=== PATIENT | female | born 1995 | race Caucasian/White ===

== ENCOUNTER 2017-01-27 22:21 | Emergency (ER) | payer SELFPAY ==
[~2017-01-27] VITALS: Ht 167.6 cm; Wt 65.0 kg
[2017-01-27 22:22] VITALS: BP 111/69; PULSE 88; RESP 18; TEMP 97.6; O2SAT 98
[2017-01-28] MEDS ORDERED: SULFAMETHOXAZOLE-TRIMETHOPRIM DS 800-160 MG TAB PO ONE (01:00)
[2017-01-28] MEDS ORDERED: CEPHALEXIN MONOHYDRATE 500 MG CAP PO ONE (01:00)
[2017-01-28] MEDS ORDERED: CEPH-460 PO (01:06)
[2017-01-28] MEDS ORDERED: BACT800T5 PO (01:06)
--- NOTE | 2017-01-28 01:06 | PD ---
HPI Chief Complaint: Eye Problems/Injury Time Seen by Provider: 01:00 Travel History International Travel<30 days: No Contact w/Intl Traveler<30days: No Traveled to known affect area: No History of Present Illness HPI 21-year-old white female presents emergency Department with complaints of painful lump to the right side of her head just lateral to her eye. She states that she had a pimple there which she had squeezed. She had gotten a lot of pus out of it. She states that she had done this earlier today. She states now that the area has become increasing painful again and swollen this is a now involving her upper eyelid. She presents for evaluation. She denies any visual changes. No drainage from her eye. Up-to-date with immunizations. No fever chills. Pain is mild. PFSH Past Medical History Narrative Medical Cystic acne, cervical dysplasia, genital herpes Cancer: Yes (CERVICAL CANCER, HPV) Diminished Hearing: No Genitourinary: Yes (HERPES) Immunizations Current: Yes Tetanus Vaccination: < 5 Years ?: Unknown LMP: 01/27/17 Menopausal: No : 2 Para: 0 Miscarriage: 2 : 0 Past Surgical History Surgical History: No Previous Surgery Section: No Social History Alcohol Use: No Tobacco Use: Yes (1/2ppd ) Substance Use: No Allergies-Medications (Allergen,Severity, Reaction): Coded Allergies: Acyclovir (Verified Allergy, Severe, WORSENS STD, 01/27/17) Benzoyl Peroxide (Verified Allergy, Severe, WORSENS ACNE, 01/27/17) Reported Meds & Prescriptions Reported Meds & Active Scripts Active No Active Prescriptions or Reported Medications Review of Systems Except as stated in HPI: all other systems reviewed are Neg Physical Exam Narrative GENERAL: Well-developed, well-nourished in no acute distress. Nontoxic appearing. HEAD: Normocephalic, patient has a 1.5 x 1.5 tender cystic acne to the right temporal aspect of her eye on the catholic region. There is some mild swelling of the left upper eyelid. There is no signs of cellulitis. EYES: Pupils equal round and reactive. Extraocular motions intact. No scleral icterus. No injection or drainage. ENT: TMs clear without erythema. The external auditory canals clear. Nose: clear . Posterior pharynx is pink and moist. No tonsillar edema or exudate. Uvula midline. Airway patent. NECK: Trachea midline.Supple, nontender, moves head freely. No central bony tenderness or spasm. CARDIOVASCULAR: Regular rate and rhythm without murmurs, gallops, or rubs. RESPIRATORY: Clear to auscultation. Breath sounds equal bilaterally. No wheezes , rales, or rhonchi. GASTROINTESTINAL: Abdomen soft, non-tender, nondistended. No hepato-splenomegaly , or palpable masses. No guarding. EXTREMITIES: No clubbing, cyanosis, or edema. No joint tenderness, effusion, or edema noted. BACK: Nontender without deformity or crepitance. No flank tenderness. Data Data Last Documented VS Vital Signs Date Time Temp Pulse Resp B/P Pulse Ox O2 Delivery O2 Flow Rate FiO2 01/27/17 22:22 97.6 88 18 111/69 98 Orders Ice/Cold Pack (01/28/17 00:59) Sulfamet-Trimeth Ds 800-160 Mg (Bactrim (01/28/17 01:00) Cephalexin (Keflex) (01/28/17 01:00) MDM Medical Decision Making Medical Screen Exam Complete: Yes Emergency Medical Condition: Yes Medical Record Reviewed: Yes Differential Diagnosis MDM: High Differential diagnoses: Abscess, folliculitis, cellulitis, lymphangitis, abrasion, contact dermatitis Narrative Course Patient is given Bactrim DS and Keflex 500 mg by mouth. This is cystic acne Diagnosis Primary Impression: Cystic acne Additional Instructions: Rest. Elevation. keep clean and dry. Ice pack tonight. Then a warm compress. Daily wound care with soap, water and Neosporin. Three Advil every 6 hours. Bactrim DS and Keflex.. Follow-up with a primary care doctor in one week. Return to the ER for any problems. Med/Other Pt SpecificInfo: Prescription(s) given, Wound Care Scripts No Active Prescriptions or Reported Meds Disposition: DISCHARGE HOME Condition: Stable Law Siddiqi Jan 28, 2017 01:06
== END 2017-01-28 01:48 | disposition home or self-care (01) ==
LOC: NEPD 22:21
DX: L70.0 Acne vulgaris (principal); F17.210 Nicotine dependence, cigarettes, uncomplicated
CPT/HCPCS: 99282

== ENCOUNTER 2017-06-21 08:54 | Emergency (ER) | payer SELFPAY ==
[~2017-06-21] VITALS: Ht 165.1 cm; Wt 54.5 kg
[~2017-06-21 08:54] MED LIST: BACT800T5 PO; CEPH-460 PO
[2017-06-21 08:55] VITALS: BP 136/67; PULSE 88; RESP 14; TEMP 98.5; O2SAT 99
[2017-06-21] MEDS ORDERED: BACT800T5 PO (09:40)
--- NOTE | 2017-06-21 09:40 | PD ---
HPI Chief Complaint: Wound/Suture/Staple Re-Check Time Seen by Provider: 09:19 Travel History International Travel<30 days: No Contact w/Intl Traveler<30days: No Traveled to known affect area: No History of Present Illness HPI has had insect bites to her hands and to right cheek area, now her right cheek is swollen, and painful, 04/09, nonrad, PFSH Past Medical History Cancer: Yes (CERVICAL CANCER, HPV) Diminished Hearing: No Genitourinary: Yes (HERPES) Immunizations Current: Yes ?: Not LMP: 06/06/17 Menopausal: No : 2 Para: 0 Miscarriage: 2 : 0 Past Surgical History Section: No Social History Alcohol Use: No Tobacco Use: Yes (1/2ppd ) Substance Use: No Allergies-Medications (Allergen,Severity, Reaction): Coded Allergies: acyclovir (Unverified Allergy, Severe, WORSENS STD, 05/15/17) benzoyl peroxide (Unverified Allergy, Severe, WORSENS ACNE, 05/15/17) Reported Meds & Prescriptions Reported Meds & Active Scripts Active Bactrim DS (Sulfamethoxazole-Trimethoprim) 800-160 Mg Tab 1 Tab PO BID Bactrim DS (Sulfamethoxazole-Trimethoprim) 800-160 Mg Tab 1 Tab PO BID Review of Systems Except as stated in HPI: all other systems reviewed are Neg Skin: Positive Lesions Physical Exam Narrative GENERAL: SKIN: Warm and dry. has small maculopapular lesions to bilateral hands and forearm (4 lesions noted) as well as to mandibular right jaw lesion which had edema, but no fluctuance... right maxillary pericoronitis noted HEAD: Atraumatic. Normocephalic. EYES: Pupils equal and round. No scleral icterus. No injection or drainage. ENT: No nasal bleeding or discharge. Mucous membranes pink and moist. NECK: Trachea midline. No JVD. CARDIOVASCULAR: Regular rate and rhythm. RESPIRATORY: No accessory muscle use. Clear to auscultation. Breath sounds equal bilaterally. GASTROINTESTINAL: Abdomen soft, non-tender, nondistended. MUSCULOSKELETAL: Extremities without clubbing, cyanosis, or edema. No obvious deformities. NEUROLOGICAL: Awake and alert. No obvious cranial nerve deficits. Motor grossly within normal limits. Five out of 5 muscle strength in the arms and legs. Normal speech. PSYCHIATRIC: Appropriate mood and affect; insight and judgment normal. Data Data Last Documented VS Vital Signs Date Time Temp Pulse Resp B/P (MAP) Pulse Ox O2 Delivery O2 Flow Rate FiO2 06/21/17 09:28 84 18 06/21/17 08:55 98.5 136/67 (90) 99 Orders Orders Clindamycin Inj (Cleocin Inj) (06/21/17 10:45) MDM Medical Decision Making Medical Screen Exam Complete: Yes Emergency Medical Condition: Yes Medical Record Reviewed: Yes Differential Diagnosis CELLULITIS V ABSCESS V INSECT BITE V DENTAL SOURCE Narrative Course AFTER EVALUATION, PATIENT HAS A DENTAL SOURCE INFECTION WITH FACIAL EXTENSION CELLULITIS, NO ACTUAL ABSCESS. Diagnosis Primary Impression: Cellulitis of face Additional Impression: dental origin Patient Instructions: Cellulitis (DC), General Instructions Scripts Sulfamethoxazole-Trimethoprim (Bactrim DS) 800-160 Mg Tab 1 TAB PO BID for Infection, #20 TAB 0 Refills Prov: Benedicto Brown MD 06/21/17 Disposition: 01 DISCHARGE HOME Condition: Stable Benedicto Brown MD Jun 21, 2017 09:40
[2017-06-21] MEDS ORDERED: CLINDAMYCIN PHOS 300 MG/2 ML VIAL IM ONE (10:45)
== END 2017-06-21 12:30 | disposition home or self-care (01) ==
LOC: NEPD 08:54
DX: L03.211 Cellulitis of face (principal); F17.200 Nicotine dependence, unspecified, uncomplicated; Z85.41 Personal history of malignant neoplasm of cervix uteri
CPT/HCPCS: 96372